=== PATIENT | male | born 1990 | race African-American/Black ===

== ENCOUNTER 2022-01-26 17:26 | Outpatient (CLI) | payer OTHER ==
--- NOTE | 2022-01-27 18:17 | XRAY Report ---
PROCEDURE: Ribs 2 View RT INDICATIONS: RIGHT RIB PAIN TECHNIQUE: 3 views of the right ribs were acquired. COMPARISON: None FINDINGS: Surgical changes and devices: None. Bones and chest wall: A marker is placed upon the area of pain. At this site, no fractures are seen. No fractures or dislocations are seen elsewhere. No suspicious bony lesions. The overlying soft tis sues appear unremarkable. Lungs and pleura: The visualized lung appears clear. No pleural effusions or pneumothorax are visib le. IMPRESSION: No displaced rib fracture can be seen on this plain film study. Reviewed by: Uriah Velasco MD on 01/27/2022 5:16 PM BART Approved by: Uriah Velasco MD on 01/27/2022 5:16 PM BART Station ID: [id number]
== END 2022-01-26 17:27 | disposition home or self-care (01) ==
LOC: DI.N 17:26
PROVIDERS: ATTEND Physician Assistant Medical
DX: M94.0 Chondrocostal junction syndrome [Tietze] (principal)

== ENCOUNTER 2022-06-06 06:11 | Emergency (ER) | payer OTHER ==
[2022-06-06] MEDS ORDERED: KETOROLAC 15 MG/ML VIAL IVP STA (06:32)
[2022-06-06] MEDS ORDERED: SODIUM CHLORIDE 0.9% 1,000 ML IV STA (06:32)
[2022-06-06] MEDS ORDERED: ONDANSETRON 4 MG/2 ML VIAL IVP STA ×2 (06:32→09:17)
[2022-06-06 06:40] LABS: EOSINOPHILS # (AUTO) 0.2 10^3/uL (0.0-0.7); EOSINOPHILS % (AUTO) 5.8 %; HCT - HEMATOCRIT 48.5 % (42.0-52.0); HGB - HEMOGLOBIN 15.9 g/dL (14.0-18.0); LYMPHOCYTES # (AUTO) 2.1 10^3/uL (1.5-3.5); LYMPHOCYTES % (AUTO) 51.8 %; MEAN CORPUSCULAR HEMOGLOBIN 28.2 pg (27.0-31.0); MEAN CORPUSCULAR HGB CONC 32.8 g/dL (32.0-36.0); MEAN PLATELET VOLUME 10.6 fL (7.4-11.4); MONOCYTES # (AUTO) 0.4 10^3/uL (0.0-1.0); MONOCYTES % (AUTO) 8.8 %; NEUTROPHILS # (AUTO) 1.3 10^3/uL (1.5-6.6); NEUTROPHILS % (AUTO) 32.4 %; PLT - PLATELET COUNT 237 10^3/uL (130-450); RED BLOOD COUNT 5.64 10^6/uL (4.70-6.10); RED CELL DISTRIBUTION WIDTH 11.9 % (12.0-15.0); WHITE BLOOD COUNT 4.1 x10^3/uL (4.8-10.8)
[2022-06-06 06:50] LABS: ALBUMIN 4.3 g/dL (3.2-5.5); ALBUMIN/GLOBULIN RATIO 1.2 (1.0-2.2); BILIRUBIN,TOTAL 0.7 mg/dL (0.2-1.0); CALCIUM 9.1 mg/dL (8.5-10.3); CREATININE 1.2 mg/dL (0.6-1.2); POTASSIUM 4.2 mmol/L (3.5-5.0)
[2022-06-06] MEDS ORDERED: iohexoL-300 100 ML VIAL ONE (07:05)
--- NOTE | 2022-06-06 07:33 | ED Physician Documentation ---
PD HPI ABD PAIN - Stated complaint Stated Complaint: ABD/RT SIDE PAIN, V/N - Chief complaint Chief Complaint: Abd Pain - History obtained from History obtained from: Patient - Additional information Additional information: Patient is a 31-year-old male with a history of kidney stones presenting for evaluation of right flank pain that started suddenly at 5 AM.He had just urinated prior to the onset of pain. He denies noticing blood or having any discomfort with urination. The pain does not radiate. It feels similar to prior kidney stones. The last one was in 2019. He has never seen a urologist for his stones. The pain is sharp and aching.He has associated nausea and vomiting. No diarrhea or constipation.No blood in his emesis. No fever, chest pain or difficulty breathing. He has not taken anything for pain. He does have relief with medications given here. Review of Systems Constitutional: denies: Fever Cardiac: denies: Chest pain / pressure Respiratory: denies: Dyspnea GI: reports: Nausea, Vomiting : denies: Hematuria Musculoskeletal: denies: Back pain (Right flank) Neurologic: denies: Headache PD PAST MEDICAL HISTORY - Past Medical History Past Medical History: No Cardiovascular: None Respiratory: None Neuro: None Endocrine/Autoimmune: None GI: None : None HEENT: None Psych: None Musculoskeletal: None Derm: None - Past Surgical History Past Surgical History: No - Present Medications Home Medications: Ambulatory Orders Medication Instructions Recorded Confirmed Ondansetron Odt [Zofran] 4 mg TL Q6H PRN #10 tablet 06/06/22 Oxycodone HCl/Acetaminophen 1 each PO Q6H PRN #14 tablet 06/06/22 [Percocet 5-325 mg Tablet] Tamsulosin [Flomax] 0.4 mg PO DAILY #14 cap 06/06/22 - Allergies Allergies/Adverse Reactions: Allergies Allergy/AdvReac Type Severity Reaction Status Date / Time No Known Drug Allergies Allergy Verified 06/06/22 06:24 - Social History Does the pt smoke?: No Smoking Status: Never smoker Does the pt drink ETOH?: No Does the pt have substance abuse?: No - Immunizations Immunizations are current?: Yes - POLST Patient has POLST: No PD ED PE NORMAL - General General: Alert and oriented X 3, No acute distress, Well developed/nourished - HEENT HEENT: Atraumatic - Neck Neck: Supple, no meningeal sign - Cardiac Cardiac: RRR, No murmur - Respiratory Respiratory: No respiratory distress, Clear bilaterally - Abdomen Abdomen: Normal bowel sounds, Soft, Non tender, Non distended, Other (No mass, no hernia) - Back Back: No CVA TTP - Derm Derm: Warm and dry - Neuro Neuro: Normal speech Results - Vitals Vitals: Vital Signs - 24 hr 06/06/22 06/06/22 06/06/22 06:22 06:25 10:24 Temperature 36.3 C L Heart Rate 82 67 Respiratory 22 22 18 Rate Blood Pressure 142/103 H 125/60 O2 Saturation 97 99 06/06/22 11:54 Temperature 36.5 C Heart Rate 78 Respiratory 14 Rate Blood Pressure 150/93 H O2 Saturation 98 Oxygen O2 Source Room air - Labs Labs: Laboratory Tests 06/06/22 06/06/22 06/06/22 06:20 06:25 09:25 WBC 4.1 L RBC 5.64 Hgb 15.9 Hct 48.5 MCV 86.0 MCH 28.2 MCHC 32.8 RDW 11.9 L Plt Count 237 MPV 10.6 Neut # (Auto) 1.3 L Lymph # (Auto) 2.1 [place] # (Auto) 0.4 Eos # (Auto) 0.2 Baso # (Auto) 0.0 Absolute Nucleated RBC 0.00 Nucleated RBC % 0.0 Sodium 136 Potassium 4.2 Chloride 101 Carbon Dioxide 23 Anion Gap 12.0 BUN 17 Creatinine 1.2 Estimated GFR (MDRD) 85 L Glucose 122 H Calcium 9.1 Total Bilirubin 0.7 AST 18 ALT 15 Alkaline Phosphatase 71 Total Protein 8.0 Albumin 4.3 Globulin 3.7 Albumin/Globulin Ratio 1.2 Lipase 28 Urine Color YELLOW Urine Clarity CLEAR Urine pH 7.0 Ur Specific [place] 1.020 Urine Protein NEGATIVE Urine Glucose (UA) NEGATIVE Urine Ketones NEGATIVE Urine Occult Blood LARGE H Urine Nitrite NEGATIVE Urine Bilirubin NEGATIVE Urine Urobilinogen 0.2 (NORMAL) Ur Leukocyte Esterase NEGATIVE Urine RBC TNTC H Urine WBC 0-3 Ur Squamous Epith Cells RARE Squamous Urine Bacteria Moderate H Ur Microscopic Review INDICATED Urine Culture Comments NOT INDICATED PD Medical Decision Making - ED course Complexity details: reviewed results, re-evaluated patient, d/w patient ED course: Patient is a 31-year-old male who was evaluated for right flank pain. His labs are reviewed and he does not appear septic. His CT scan demonstrates a 3 mm right UVJ stone. He does have bilateral nephrolithiasis. I did review these findings with the patient. His pain is well controlled. He has never seen a urologist. I [facility] He is advised on concerning symptoms to return for. Departure - Departure Disposition: 01 Home, Self Care Clinical Impression: Right ureteral stone Condition: Stable Instructions: ED Stone Renal W Colic Prescriptions: Tamsulosin [Flomax] 0.4 mg PO DAILY #14 cap Oxycodone HCl/Acetaminophen [Percocet 5-325 mg Tablet] 1 each PO Q6H PRN #14 t ablet PRN Reason: pain Ondansetron Odt [Zofran] 4 mg TL Q6H PRN #10 tablet PRN Reason: Nausea / Vomiting Comments: You were found to have a 3 mm stone in the right ureter which is the tube that connects the kidney to the bladder. The stone is near the bladder. You also have several stones in both kidneys which are currently not causing an issue.In order to help you pass your stone I have prescribed medications called Flomax I have also prescribed pain and nausea medications. These prescriptions are sent to [facility] in [place]. I would recommend [facility] as you may need a referral to a urologist. I am prescribing a short course of narcotic pain medication for you. These are potentially dangerous and addictive medications that should be used carefully. These medications may constipate you. Take an [id number] stool softener (docusate) twice daily with plenty of water while taking these medications. If you go 24 hours without a bowel movement, take iodu-[id number] miralax, per package instructions. Do not drink or drive while taking these medications. If you received narcotic or sedating medications while in the emergency department, do not drive for 24 hours. Store this medication in a safe, secure place and out of reach of children. It is a violation of federal law to give or sell this medication to another person or to use in a manner other than prescribed. The ED will not refill narcotic prescriptions, including prescriptions lost or stolen. To dispose of unwanted medications: 1. [facility] at [address] in [place] has a medication drop box. They accept prescription medications (in pill form) Saturday through Saturday 9:00 a.m. to 5:00 p.m. 2. The [facility] [employer] accepts prescription medications (in pill form only) for disposal year round. Call for more information. 3. Contact the [facility] for the next [facility] sponsored prescription drug collection event. , [phone], or [phone]; Note that many narcotic pain relievers also contain Tylenol/acetaminophen. Please ensure that your total dose of acetaminophen from all sources does not exceed 3 g (3000 mg) per day. Forms: Activity restrictions Discharge Date/Time: 06/06/22 11:59
[2022-06-06] MEDS ORDERED: MORPHINE 2 MG/ML CARPUJECT IVP STA ×2 (09:07→11:30)
[2022-06-06] MEDS ORDERED: ONDANSETRON 4 MG/2 ML VIAL ONE (09:18)
[2022-06-06 09:33] LABS: BILIRUBIN,URINE NEGATIVE (NEGATIVE); GLUCOSE, URINE (UA) NEGATIVE (NEGATIVE); KETONES,URINE (UA) NEGATIVE (NEGATIVE); LEUKOCYTE ESTERASE, URINE NEGATIVE (NEGATIVE); NITRITE,URINE NEGATIVE (NEGATIVE); OCCULT BLOOD,URINE LARGE (NEGATIVE); PROTEIN,URINE NEGATIVE (NEGATIVE); UROBILINOGEN,URINE 0.2 (NORMAL) E.U./dL (NORMAL)
[2022-06-06 09:42] LABS: CLARITY,URINE CLEAR (CLEAR); RBC,URINE TNTC /HPF (0-5); SQUAMOUS EPITHELIAL CELL,UR RARE Squamous (<= Few); WBC,URINE 0-3 /HPF (0-3)
[2022-06-06 09:43] LABS: BACTERIA,URINE Moderate /HPF (None Seen)
--- NOTE | 2022-06-06 10:48 | CT Report ---
PROCEDURE: ABDOMEN/PELVIS WO INDICATIONS: flank pain TECHNIQUE: Noncontrast 5 mm thick sections acquired from the diaphragms to the symphysis. 5 mm coronal and sagi ttal reformats were then performed. For radiation dose reduction, the following was used: automated exposure control, adjustment of mA and/or kV according to patient size. COMPARISON: None. FINDINGS: Image quality: Excellent. ABDOMEN: Lung bases: Lung bases are clear. Heart size is normal. Small hiatal hernia. Solid organs: Liver and spleen are normal in size. Gallbladder is normal. Pancreas is normal in co ntours. No adrenal nodules. A 3 mm stone is seen at the right ureterovesical junction. There is mild right hydronephrosis and hyd roureter. There are multiple additional nonobstructing renal calculi bilaterally. The largest stone i n the kidney is in the superior pole measuring [address]. The largest stone in the left kidney measures 3 mm. Kidneys are normal in size. Peritoneum and bowel: Unenhanced bowel loops demonstrate normal wall thickness and caliber. No free fluid or air. Nodes and vessels: No retroperitoneal or mesenteric adenopathy by size criteria. Aorta and inferior vena cava are normal in caliber. Miscellaneous: No ventral hernias. PELVIS: Genitourinary: Bladder wall thickness is normal. Miscellaneous: No inguinal hernias or adenopathy. Bones: No suspicious bony lesions. No vertebral body compression fractures. Mild degenerative disc disease in the lower lumbar spine. IMPRESSION: 1. A 3 mm obstructive stone is seen at the right ureterovesical junction, causing mild right hydronep hrosis. 2. Bilateral nonobstructive renal calculi. Reviewed by: German Marie MD on 06/06/2022 10:46 AM PST Approved by: German Marie MD on 06/06/2022 10:46 AM PST Station ID: [id number]
[2022-06-06] MEDS ORDERED: oxyCODONE 5 MG TABLET PO STA (11:08)
[2022-06-06 11:55] VITALS: BP 150/93
== END 2022-06-06 11:59 | disposition home or self-care (01) ==
LOC: ED 06:11
DX: N21.1 Calculus in urethra (principal)
CPT/HCPCS: 36415; 74176; 80053; 81001; 83690; 85025; 96374; 96375; 96376; 99284; A9270; 81003; 87086

== ENCOUNTER 2022-07-22 17:24 | Emergency (ER) | payer OTHER ==
--- NOTE | 2022-07-22 17:36 | ED Physician Documentation ---
History of Present Illness - Stated complaint Stated Complaint: rt side px - History obtained from History obtained from: Patient - Additonal information Additional information: 31-year-old gentleman with remote appendectomy. Has had issues lately with renal colic. Seen here June 06 at which time he had bilateral nephroliths and a 2 mm right UVJ stone. Developed right flank pain last night, it was quite severe throughout the night but better now. He has some urinary frequency with it. PD PAST MEDICAL HISTORY - Past Medical History Cardiovascular: None Respiratory: None Neuro: None Endocrine/Autoimmune: None GI: None : None HEENT: None Psych: None Musculoskeletal: None Derm: None - Past Surgical History Past Surgical History: No - Present Medications Home Medications: Ambulatory Orders Medication Instructions Recorded Confirmed Ondansetron Odt [Zofran] 4 mg TL Q6H PRN #10 tablet 06/06/22 Oxycodone HCl/Acetaminophen 1 each PO Q6H PRN #14 tablet 06/06/22 [Percocet 5-325 mg Tablet] Tamsulosin [Flomax] 0.4 mg PO DAILY #14 cap 06/06/22 Tamsulosin [Flomax] 0.4 mg PO DAILY #14 cap 07/22/22 - Allergies Allergies/Adverse Reactions: Allergies Allergy/AdvReac Type Severity Reaction Status Date / Time No Known Drug Allergies Allergy Verified 07/22/22 17:38 - Social History Does the pt smoke?: No Smoking Status: Never smoker Does the pt drink ETOH?: No Does the pt have substance abuse?: No - Immunizations Immunizations are current?: Yes - POLST Patient has POLST: No PD ED PE NORMAL - Vitals Vital signs reviewed: Yes - General General: Alert and oriented X 3, No acute distress - Respiratory Respiratory: No respiratory distress, Clear bilaterally - Abdomen Abdomen: Normal bowel sounds, Soft, Non tender - Back Back: No CVA TTP, No spinal TTP - Derm Derm: Normal color, Warm and dry - Neuro Neuro: Alert and oriented X 3, Normal speech Results - Vitals Vitals: Vital Signs - 24 hr 07/22/22 17:35 Temperature 37.1 C Heart Rate 90 Respiratory 14 Rate Blood Pressure 176/92 H O2 Saturation 98 Oxygen O2 Source Room air - Labs Labs: Laboratory Tests 07/22/22 07/22/22 07/22/22 17:38 17:39 17:56 WBC 8.8 RBC 5.51 Hgb 15.5 Hct 47.5 MCV 86.2 MCH 28.1 MCHC 32.6 RDW 11.7 L Plt Count 238 MPV 10.8 Neut # (Auto) 5.2 Lymph # (Auto) 2.6 [place] # (Auto) 0.8 Eos # (Auto) 0.1 Baso # (Auto) 0.0 Absolute Nucleated RBC 0.00 Nucleated RBC % 0.0 Sodium 139 Potassium 3.9 Chloride 106 Carbon Dioxide 23 Anion Gap 10.0 BUN 15 Creatinine 1.5 H Estimated GFR (MDRD) 66 L Glucose 101 H Calcium 9.4 Total Bilirubin 1.1 H AST 18 ALT 15 Alkaline Phosphatase 72 Total Protein 7.6 Albumin 4.0 Globulin 3.6 Albumin/Globulin Ratio 1.1 Lipase 25 Urine Color YELLOW Urine Clarity CLEAR Urine pH 7.0 Ur Specific [place] 1.020 Urine Protein NEGATIVE Urine Glucose (UA) NEGATIVE Urine Ketones TRACE Urine Occult Blood MODERATE H Urine Nitrite NEGATIVE Urine Bilirubin NEGATIVE Urine Urobilinogen 0.2 (NORMAL) Ur Leukocyte Esterase NEGATIVE Urine RBC 11-25 H Urine WBC 0-3 Ur Squamous Epith Cells RARE Squamous Urine Bacteria Rare Urine Mucus Few Strands Ur Microscopic Review INDICATED Urine Culture Comments NOT INDICATED PD Medical Decision Making - ED course Complexity details: reviewed old records, reviewed results (CBC reviewed and normal. CMP reviewed with creatinine elevated at 1.5. Urinalysis reviewed and notable for hematuria.), d/w patient ED course: Prior CT reviewed with multiple nephroliths on both side (last month). His pain is controlled at this moment and he did not need anything at the time but presume he is passing another kidney stone. He does not have an appendix and his abdominal exam is benign. Departure - Departure Disposition: 01 Home, Self Care Clinical Impression: Renal colic Condition: Good Record reviewed to determine appropriate education?: Yes Instructions: ED Stone Renal W Colic Prescriptions: Tamsulosin [Flomax] 0.4 mg PO DAILY #14 cap Comments: You were seen today for right flank pain. Based on your prior CT, exam and lab work. I do think you have another kidney stone passing. We notes today that your creatinine is 1.5. This will need to be monitored by your physician. You also had blood in your urine which fits with a kidney stone. You did have multiple kidney stones on the CAT scan from last month. 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 Until then, eat plenty of fruits, whole grains, and limit processed foods. Return if worse. Discharge Date/Time: 07/22/22 18:31
[2022-07-22 17:38] VITALS: BP 176/92
[2022-07-22 17:44] LABS: BASOPHILS % (AUTO) 0.5 %; EOSINOPHILS # (AUTO) 0.1 10^3/uL (0.0-0.7); EOSINOPHILS % (AUTO) 0.9 %; HCT - HEMATOCRIT 47.5 % (42.0-52.0); HGB - HEMOGLOBIN 15.5 g/dL (14.0-18.0); LYMPHOCYTES # (AUTO) 2.6 10^3/uL (1.5-3.5); LYMPHOCYTES % (AUTO) 29.9 %; MEAN CORPUSCULAR HEMOGLOBIN 28.1 pg (27.0-31.0); MEAN CORPUSCULAR HGB CONC 32.6 g/dL (32.0-36.0); MEAN CORPUSCULAR VOLUME 86.2 fL (80.0-94.0); MEAN PLATELET VOLUME 10.8 fL (7.4-11.4); MONOCYTES # (AUTO) 0.8 10^3/uL (0.0-1.0); MONOCYTES % (AUTO) 9.1 %; NEUTROPHILS # (AUTO) 5.2 10^3/uL (1.5-6.6); NEUTROPHILS % (AUTO) 59.5 %; PLT - PLATELET COUNT 238 10^3/uL (130-450); RED BLOOD COUNT 5.51 10^6/uL (4.70-6.10); RED CELL DISTRIBUTION WIDTH 11.7 % (12.0-15.0); WHITE BLOOD COUNT 8.8 x10^3/uL (4.8-10.8)
[2022-07-22 18:03] LABS: BILIRUBIN,URINE NEGATIVE (NEGATIVE); GLUCOSE, URINE (UA) NEGATIVE (NEGATIVE); KETONES,URINE (UA) TRACE mg/dL (NEGATIVE); LEUKOCYTE ESTERASE, URINE NEGATIVE (NEGATIVE); NITRITE,URINE NEGATIVE (NEGATIVE); OCCULT BLOOD,URINE MODERATE (NEGATIVE); PROTEIN,URINE NEGATIVE (NEGATIVE); UROBILINOGEN,URINE 0.2 (NORMAL) E.U./dL (NORMAL)
[2022-07-22 18:06] LABS: CLARITY,URINE CLEAR (CLEAR)
[2022-07-22 18:15] LABS: ALBUMIN/GLOBULIN RATIO 1.1 (1.0-2.2); BILIRUBIN,TOTAL 1.1 mg/dL (0.2-1.0); CALCIUM 9.4 mg/dL (8.5-10.3); CREATININE 1.5 mg/dL (0.6-1.2); POTASSIUM 3.9 mmol/L (3.5-5.0); TOTAL PROTEIN 7.6 g/dL (6.7-8.2)
[2022-07-22 18:19] LABS: BACTERIA,URINE Rare /HPF (None Seen); MUCUS,URINE Few Strands; SQUAMOUS EPITHELIAL CELL,UR RARE Squamous (<= Few); WBC,URINE 0-3 /HPF (0-3)
== END 2022-07-22 18:31 | disposition home or self-care (01) ==
LOC: ED 17:24
DX: N23 Unspecified renal colic (principal); Z87.442 Personal history of urinary calculi
CPT/HCPCS: 36415; 80053; 81001; 81003; 83690; 85025; 87086; 99283; 99284

== ENCOUNTER 2023-04-23 11:27 | Emergency (ER) | payer OTHER ==
[2023-04-23 11:40] VITALS: BP 147/105; O2SAT 96
--- NOTE | 2023-04-23 12:06 | ED Physician Documentation ---
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 [place] and it was negative and told he had a viral syndrome but he would like to be tested for the flu. PD PAST MEDICAL HISTORY - Past Medical History Past Medical History: Yes Cardiovascular: Hypertension Respiratory: None Neuro: None Endocrine/Autoimmune: None GI: None : None HEENT: None Psych: None Musculoskeletal: None Derm: None - Past Surgical History Past Surgical History: No General: Appendectomy - Present Medications Home Medications: Ambulatory Orders Medication Instructions Recorded Confirmed Ibuprofen [Motrin] 800 mg PO Q8H PRN #30 tablet 04/23/23 Lisinopril [Zestril] 5 mg PO DAILY 04/23/23 04/23/23 Loperamide [Imodium] 2 mg PO QID PRN #10 cap 04/23/23 Ondansetron Odt [Zofran] 4 mg TL Q6H PRN #10 tablet 04/23/23 - Allergies Allergies/Adverse Reactions: Allergies Allergy/AdvReac Type Severity Reaction Status Date / Time No Known Drug Allergies Allergy Verified 04/23/23 11:36 - Social History Does the pt smoke?: No Smoking Status: Never smoker Does the pt drink ETOH?: No Does the pt have substance abuse?: No - Immunizations Immunizations are current?: Yes - POLST Patient has POLST: No PD ED PE NORMAL - Vitals Vital signs reviewed: Yes - General General: Alert and oriented X 3, No acute distress - HEENT HEENT: Pharynx benign - Neck Neck: Supple, no meningeal sign, No bony TTP, No adenopathy - Cardiac Cardiac: RRR, No murmur - Respiratory Respiratory: No respiratory distress, Clear bilaterally - Abdomen Abdomen: Non tender - Neuro Neuro: Alert and oriented X 3, Normal speech - Psych Psych: Normal mood, Normal affect Results - Vitals Vitals: Vital Signs - 24 hr 04/23/23 11:33 Temperature 37.6 C Heart Rate 88 Respiratory 15 Rate Blood Pressure 147/105 H O2 Saturation 96 Oxygen O2 Source Room air - Labs Labs: Laboratory Tests 04/23/23 12:29 Influenza A (Rapid) Negative Influenza B (Rapid) Negative PD Medical Decision Making - ED course ED course: 32-year-old gentleman with viral syndrome/flulike illness, [place] 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 Throat not consistent with strep pharyngitis. Departure - Departure Disposition: 01 Home, Self Care Clinical Impression: Viral syndrome Condition: Good Record reviewed to determine appropriate education?: Yes Instructions: ED Viral Syndrome Prescriptions: Loperamide [Imodium] 2 mg PO QID PRN #10 cap PRN Reason: Diarrhea Ibuprofen [Motrin] 800 mg PO Q8H PRN #30 tablet PRN Reason: PAIN &/OR FEVER Ondansetron Odt [Zofran] 4 mg TL Q6H PRN #10 tablet PRN Reason: Nausea / Vomiting Comments: You have a flulike illness. We are testing for influenza but there are other causes of similar symptoms. 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 Rest and drink plenty of fluids. Follow- up with your doctor Saturday if not better. Return for new or worsening symptoms. Forms: PCP List, Activity restrictions Discharge Date/Time: 04/23/23 12:31
== END 2023-04-23 12:31 | disposition home or self-care (01) ==
LOC: ED 11:27
DX: B34.9 Viral infection, unspecified (principal)
CPT/HCPCS: 87275; 87276; 99283

== ENCOUNTER 2024-01-30 08:24 | Outpatient (CLI) | payer OTHER ==
--- NOTE | 2024-01-30 09:37 | Sleep Patient Instructions ---
Sleep Center Visit Summary - Patient Visit Information Reason for Visit: Initial consult for evaluation of sleep disordered breathing and other sleep issues. - Patient Instructions Instructions Attached: Sleep Study, Sleep Study Home Monitor Additional Instructions: You will be completing a sleep study, either an in-lab polysomnography (PSG) or home sleep study (HST). You will follow-up in the sleep care office after the sleep study is completed to hear the results and talk about therapy, if needed. You will be called by our office staff to schedule this appointment, but you may contact us with any questions. - Clinic Information Contact: [facility] [address] [place] [phone] [email or web address] T: [phone]
--- NOTE | 2024-01-30 09:44 | SLEEP CARE CONSULTATION ---
Information from patient questionnaire entered by Rupesh Mason. I have reviewed and concur with the information entered by Rupesh Mason. This document represents the service I personally performed and the decisions made by me, Emma Rooney ARNP. History of Present Illness Service Date and Time: 01/30/2024 08 Reason for Visit: New patient Chief Complaint: reports: Unrefreshed sleep, Snoring, Excessive daytime sleepiness, Observed pauses in breathing, Fatigue Date of Onset: 4 years Usual bedtime: 9:00 PM Time it takes to fall asleep: 5 - 15 mins Snores at night: Yes Observed to quit breathing while asleep: Yes Sleeps alone due to snoring: No Number of times waking at night: 0 - 2 Reasons for waking at night: reports: Snoring, Bathroom, Other (Unknown reason). denies: Choking, Gasping for air Toss, Turn, or Twitch while sleeping: Yes Recalls having dreams: No Usually gets out of bed at: 0545; weekends 07-09 AM Feels refreshed in the morning: No Morning headache: No Sleepy or fatigued during the day: Yes Ever fallen asleep while driving: No (yes/no-feels tired but not falling asleep) Takes day naps: No (may take nap on weekends) Dreams during day naps: No Prior sleep studies: No Additional HPI information: I had the pleasure of seeing GABRIELLA BARRON today regarding the possibility of him having a sleep disorder. His current complaints are daytime sleepiness, fati shira, observed pauses in breathing, snoring and unrefreshed sleep. He has been told that he stops breathing in his sleep. He has noticed that it does not matter how much he sleeps, he does not feel rested. His snoring was reported loud by his ex-. He is also tired during the day. He states he has a tonsillectomy as a child but is not sure ferocious because of snoring or he had tonsillitis. He also had an appendectomy when he was a teenager. He has no family history of people with sleep disordered breathing or snoring. 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 Patient is single and lives in [place]. Have you smoked in the past 12 months: No Alcohol use: Yes Alcohol amount and frequency: 1 - 3 once a month Caffeine use: Yes Caffeine amount and frequency: 1 - 2 every other day Family History Family history of sleep disordered breathing: No (unknown) Allergies and Home Medications Known drug allergies: No Drug allergies reviewed: Yes Home medication list reviewed: Yes (as listed) Allergy and home medication list: Allergies No Known Drug Allergies Allergy (Verified 01/30/24 09:31) Home Medications Lisinopril [Zestril] 5 mg PO DAILY 04/23/23 [History] buPROPion See Rx Instructions .ROUTE .COMPLEX 01/30/24 [History] Review of Systems Weight gain over past 5 years: 15 - 20 Cardiovascular: reports: high blood pressure Gastrointestinal: denies: heartburn Neurological: reports: headaches Psychiatric: reports: anxiety, depression Ear/Nose/Throat: reports: tonsillectomy, wisdom teeth removed Endocrine: reports: sluggishness (/tired) Musculoskeletal: reports: back pain Immunologic: reports: sneezing (/runny nose) Physical Exam Vital signs obtained and entered by: Emma Mendenhall NP Blood Pressure: 128/89 Cuff size: long (left arm, manual) Heart Rate: 84 O2 Saturation: 97 Height: 6 ft 1 in Weight: 254 lb 6.4 oz Body Mass Index: 33.5 BMI Classification: Obese Neck circumference: 16 Nostrils: patent to airflow Mouth and throat: narrow oropharynx Soft palate: long Hard palate: normal Uvula: normal Uvula visualization: 0% Mallampati Class IV Tongue: enlarged in size with teeth meyer on lateral edges Tonsils: absent bilaterally Neck: normal w/o lymphadenopathy or thyromegaly Heart: regular rate and rhythm Lungs: clear bilaterally Impression and Plan 1. Suspected Obstructive Sleep Apnea-Hypopnea Syndrome, as suggested by a h istory of loud and irregular snoring, observed cessation of breath while asleep, unrefreshed sleep, cognitive impairment, and excessive daytime sleepiness. Narrow oropharynx and obesity are common predisposing factors for obstructive sleep apnea-hypopnea syndrome. I recommend proceeding to polysomnography to confirm the diagnosis and to assess severity. If the patient has significant sleep disordered breathing, a manual CPAP titration study will also be performed to find the optimal treatment pressure. I informed the patient of what the sleep studies involve and after some discussion, obtained agreement to proceed. The pathophysiology of obstructive sleep apnea-hypopnea syndrome was discussed with the patient and health risks of cardiovascular and cerebrovascular disease if not treated. Risks of drowsy driving discussed in detail and patient advised to avoid long distance driving and to tail puller at the first sign of drowsiness. Patient agreed to plan. * Schedule polysomnography +- manual CPAP titration study and return in 1-2 weeks after the study to discuss result and initiate therapy. * Avoid long distance driving or driving when feeling sleepy. * Avoid alcohol, sedative and muscle relaxant around bedtime. * Attempt to lose weight. * Review instructions provided by trained office staff on how to prepare for the sleep study. * Return for follow-up after sleep study completed. This note may have been all or partially generated using voice recognition software. Although every effort is made to edit content, dining room hostess errors may occur. Occasional wrongword or "soundalike" substitutions may have occurred due to the inherent limitations of voice recognition software. Please read the note carefully and recognize, using context, where these substitutions have occurred. Counseling Topics: Weight loss health impact Plan: PSG/HST and followup Visit Type: In Office Time Spent with Patient (minutes): 30 Provider Statement: I spent 100% of the Face to Face Visit with the patient with greater than 50% spent counseling the patient and coordination of care.
[2024-01-30 10:02] VITALS: BP 128/89; O2SAT 97
== END 2024-01-30 08:25 | disposition home or self-care (01) ==
LOC: SC 08:24
PROVIDERS: ATTEND Nurse Practitioner Family
DX: R06.83 Snoring (principal); G47.8 Other sleep disorders; G47.10 Hypersomnia, unspecified; R06.81 Apnea, not elsewhere classified; R53.83 Other fatigue; R41.89 Other symptoms and signs involving cognitive functions and awareness; E66.9 Obesity, unspecified; Z68.33 Body mass index [BMI] 33.0-33.9, adult
CPT/HCPCS: 99203; 99212

== ENCOUNTER 2024-02-10 09:18 | Outpatient (CLI) | payer OTHER | END 2024-02-10 09:19 | disposition home or self-care (01) | LOC: SC 09:18 | PROVIDERS: ATTEND Nurse Practitioner Family | DX: G47.33 Obstructive sleep apnea (adult) (pediatric) (principal); R09.02 Hypoxemia; E66.9 Obesity, unspecified; F32.A Depression, unspecified; I10 Essential (primary) hypertension; Z68.33 Body mass index [BMI] 33.0-33.9, adult | CPT/HCPCS: 95806 ==